=== PATIENT | female | born 1935 | race Caucasian/White ===

== ENCOUNTER 2018-09-09 12:02 | Outpatient (CLI) | payer MEDICARE, OTHER ==
[2018-09-09 13:54] LABS: Bilirubin Negative (Negative); Blood, Urine Negative (Negative); Clarity CLEAR (Clear); Glucose, Urine (Dipstick) Negative (Negative); Leukocyte Moderate (Negative); Nitrite Negative (Negative); Protein, Urine (Dipstick) Negative (Neg-Trace); Specific Gravity, Urine 1.013 (1.002-1.036); Urobilinogen 0.2 mg/dL (0.2-1.0)
[2018-09-09 13:55] LABS: Bacteria/HPF None Seen HPF (None Seen); Hyaline Casts/LPF 0-3 HYALINE CAST LPF (0-3 Hyaline); Squamous Epithelial 0-3 HPF (0-3)
[2018-09-09 14:08] LABS: RBC/HPF None Seen HPF (0-3)
--- NOTE | 2018-09-09 16:45 | RAD ---
FRONTAL AND LATERAL IMAGING OF THE CHEST 09/09/18. COMPARISON: None available. HISTORY: Preoperative patient. FINDINGS: Incompletely imaged degenerative change of bilateral shoulders noted. Postsurgical anchors overlie th e left humeral head. There is no pneumothorax, pleural fluid, lobar consolidation or alveolar edema. There is atherosclerotic calcifications in the aortic arch. There is prominence of the cardiac silhouette. IMPRESSION: No acute findings. POS: NEO
== END 2018-09-09 12:03 | disposition home or self-care (01) ==
LOC: LABBT 12:02
PROVIDERS: ATTEND Orthopaedic Surgery
DX: Z01.818 Encounter for other preprocedural examination (principal); M17.12 Unilateral primary osteoarthritis, left knee
CPT/HCPCS: 71046; 81001; 87081; 93005; 93010

== ENCOUNTER 2018-09-09 12:30 | Inpatient (IN) | payer MEDICARE, OTHER ==
[2018-09-09 12:26] VITALS: BMI 32.4
[2018-09-21] MEDS ORDERED: Sodium Chloride 0.9% 100 ML ONE (06:14)
[2018-09-21] MEDS ORDERED: CEFAZOLIN 2 GM/50 ML BAG ONE (06:14)
[2018-09-21] MEDS ORDERED: Vancomycin HCl 1.5 GM in Sodium Chloride 0.9% 250 ML 300 ML IVPB SCH (06:15)
[2018-09-21] MEDS ORDERED: Midazolam HCl 2 mg/2 ml Vial ONE (06:22)
[2018-09-21] MEDS ORDERED: Lidocaine 1% (PF) 30 ML VIAL ONE (06:22)
[2018-09-21] MEDS ORDERED: Fentanyl 100 MCG/2 ML VIAL ONE ×6 (06:22→12:32)
[2018-09-21] MEDS ORDERED: Zolpidem Tartrate 5 MG TAB PO PRN ×2 (06:55→08:32)
[2018-09-21] MEDS ORDERED: Promethazine HCl 25 MG/ML VIAL IM PRN ×3 (06:55→08:32)
[2018-09-21] MEDS ORDERED: traMADol HCl 50 MG TAB PO PRN ×3 (06:55→08:32)
[2018-09-21] MEDS ORDERED: diphenhydrAMINE 25 MG CAP PO PRN (06:55)
[2018-09-21] MEDS ORDERED: Fentanyl 100 MCG/2 ML VIAL SLOW IVP PRN (06:55)
[2018-09-21] MEDS ORDERED: Ondansetron PF 4 MG/2 ML Vial IVP PRN ×2 (06:55→08:32)
[2018-09-21] MEDS ORDERED: Acetaminophen 325 MG TAB PO PRN (06:55)
[2018-09-21] MEDS ORDERED: HYDROcodone/Acetaminophen 10/325 mg Tablet PO PRN ×2 (06:55)
[2018-09-21] MEDS ORDERED: Non-Formulary Item 1 EACH (Levalbuterol Tartrate [Xopenex Hfa Inhaler] 2 PUFF) INH PRN (06:56)
[2018-09-21] MEDS ORDERED: PROVENTIL INHALER 6.7 G (200 INHALATIONS) INH PRN (07:25)
[2018-09-21] MEDS ORDERED: Promethazine HCl 25 MG/ML VIAL SLOW IVP PRN (07:56)
[2018-09-21] MEDS ORDERED: Ondansetron HCl/PF 4 MG/2 ML Vial IVP PRN (07:56)
[2018-09-21] MEDS ORDERED: Ropivacaine HCl/PF 250 ML in Premix Bag 1 BAG NERVE BLCK SCH (08:32)
[2018-09-21] MEDS ORDERED: HYDROcodone/Acetaminophen 7.5/325 mg Tablet PO PRN ×2 (08:33→08:34)
[2018-09-21] MEDS ORDERED: Non-Formulary Item 1 EACH (Budesonide-Formoterol [Symbicort 160-4.5] 1 PUFF) INH SCH (09:00)
[2018-09-21] MEDS ORDERED: Aspirin 81 mg Enteric Coated Tablet PO SCH (09:00)
--- NOTE | 2018-09-21 09:03 | OP ---
DATE OF PROCEDURE: 09/21/2018 PREOPERATIVE DIAGNOSIS: Degenerative joint disease, left knee. POSTOPERATIVE DIAGNOSES: Degenerative joint disease, left knee. TITLE OF PROCEDURE: Left total knee arthroplasty. SURGEON: Tyler Mariee M.D. BLOCK OUT MACHINE OPERATOR: Bentley Souza PA-C. BLOOD LOSS: Minimal. SPECIMEN: None. DRAINS: None. COMPLICATIONS: None. TOURNIQUET TIME: 48 minutes. IMPLANTS USED: [place] 3 Triathlon femur, #4 tibial baseplate with a 9 mm CS X3 poly spacer and 29 m m patella. PROCEDURE IN DETAIL: After informed consent was obtained in the preoperative holding area. The francine ent was taken to the operative suite where general anesthesia was induced. Once adequate level of ge neral anesthesia was obtained, the patient was positioned and a well-padded tourniquet was placed tracie und the left proximal thigh. The left lower extremity was then prepped and draped in the usual steri le fashion. Prior to exsanguination, a time out was called and all members of the surgical team agre ed upon site, surgeon, and patient. The extremity was then exsanguinated and the tourniquet was rais ed. A midline longitudinal incision was then made directly over the patella extending two fingerbrea dths above the superior pole of the patella and two fingerbreadths inferior to the inferior patellar pole of the patella. Deeper subcutaneous layers were dissected sharply and local bleeding was contro lled with Bovie electrocautery. A quad tendon longitudinal split was then made sharply and a median parapatellar arthrotomy was carried out both sharp and with Bovie electrocautery, carried down to one fingerbreadth medial to the tibial tubercle. The knee was then placed into flexion and the patella was everted nicely, and a copious fat pad ectomy was performed allowing for greater exposure of the t ibia. The computer-assisted distal femoral fiducial was then placed and pinned firmly, and the dista l femoral cutting guide was pinned firmly into place. The oscillating saw was then used to remove th e appropriate amount of bone. The 4-in-1 cutting block was then placed on the distal femur and the o scillating saw was used to remove the appropriate amount of bone off of the anterior, posterior, and chamfer cuts. After completion of bone cuts, the anterior cruciate ligament was resected sharply and the posterior cruciate ligament retractor was placed and the tibia was subluxed for better exposure. Partial meniscectomies were carried out, and the tibial computer-assisted fiducial was pinned, and the cutting guide was placed. Oscillating saw was then used to remove the bone with Hohmann retracto rs used to take care and protect the collateral ligaments. After the tibial resection was performed, a laminar is support analyst was placed in between the freshened bone cuts. The knee placed at 90 degrees and further bilateral meniscectomies were carried out, and the curved osteotome and curettage was used t o remove any excess bone spurs in the posterior compartment. The trial femoral component, tibial bas eplate were placed with the appropriate polyethylene trial insert with an appropriate polyethylene sp acer and patellar button. The knee was taken through full range of motion with flexion and extension from 0-90 degrees and patellar broach squarely in the trochlea without any squinting or subluxation noted. The knee was also stable to varus and valgus stressing at 0, 15, 45, and 90 degrees of flexio n. The drawer was negative. All trial components were then removed and the keel punch was used to pr ovide the appropriate defect in the tibia with a mallet. The freshened bone cuts were copiously irri gated with pulsatile lavage of about 1-1/2 liters to remove all excess debris. The freshened bone cu ts were then dried and with suction and lap sponge. The knee was placed in flexion and retractors we re placed to provide access to all bone cuts. Tobramycin impregnated methyl methacrylate cement was then placed on the freshened bone cuts and implants which were malleted firmly into place. Curettage and Avery elevators were used to remove any excess bone cement. The knee was placed into full exten iker and the patellar button was placed under compression, and the cement was allowed to cure. Once completed, the components were again taken through full range of motion and copious irrigation of the knee was carried out with another liter of normal saline. All components were inspected fully with full range of motion and varus and valgus stressing. There was no laxity noted and full extension was observed clinically. Primary closure was accomplished with #2 interrupted Vicryl stitch of the arth rotomy defect. This was oversewn with a #2 running Quill barbed stitch. The gravitational platelet system was then injected into the arthrotomy prior to closure. The subcutaneous layer was then close d with a running 0 barbed Monocryl stitch and skin closure accomplished with a running subcuticular 3 -0 Monocryl barbed Quill stitch and augmented with cement on the skin. Tourniquet was lowered. Good spontaneous return of distal pulses was noted clinically and a sterile dressing was applied to the i ncision. The procedure was terminated without any complications. The patient was awakened in the op erative suite and the tourniquet was removed, and the patient was taken to the recovery room in stabl e condition.
--- NOTE | 2018-09-21 09:57 | RAD ---
2 VIEWS LEFT KNEE: Date: 09/21/18 COMPARISON: None. HISTORY: Status post left knee arthroplasty. FINDINGS: Two views of the left knee show the patient to be status post left knee arthroplasty without perihard scherer lucency or fracture. Air in the soft tissues is likely from recent surgery. IMPRESSION: Status post left knee arthroplasty without evidence of complication. POS: TPC
[2018-09-21] MEDS ORDERED: traMADol HCl 50 MG TAB ONE (12:28)
--- NOTE | 2018-09-21 13:24 | PDOC.PN ---
- Subjective Encounter Start Date: 09/21/18 Encounter Start Time: 12:15 -: old records requested/rev Patient seen and examined. No new complaints. No overnight events pt seen in PACU, she had left knee replaced, has nerve block and she has no pain , she is doing well - Objective MAR Reviewed: Yes Vital Signs & Weight: Weight Weight 183 lb I&O: preoperative labs and investigation reviewed, Radiology Reviewed by me: Yes (knee xray reviewed) EKG Reviewed by me: Yes (nsr on tele monitor) Phys Exam - Physical Examination Constitutional: NAD HEENT: PERRLA, moist MMs, sclera anicteric Neck: no JVD, supple Respiratory: no wheezing, no rales, no rhonchi Cardiovascular: RRR, no significant murmur, no rub Gastrointestinal: soft, non-tender, no distention, positive bowel sounds Musculoskeletal: no edema, pulses present left knee with dressing, nerve block+, mondragon+ Neurological: non-focal, normal sensation, moves all 4 limbs left leg is numb due to nerve block Psychiatric: normal affect, A&O x 3 Skin: no rash, normal turgor Dx/Plan (1) Status post total left knee replacement Code(s): Z96.652 - PRESENCE OF LEFT ARTIFICIAL KNEE JOINT Status: Acute (2) Asthma Code(s): J45.909 - UNSPECIFIED ASTHMA, UNCOMPLICATED Status: Chronic Qualifiers: Asthma severity: mild Asthma persistence: intermittent Comment: controlled (3) Dyslipidemia Code(s): E78.5 - HYPERLIPIDEMIA, UNSPECIFIED Status: Chronic Comment: on crestor (4) Hypertension Code(s): I10 - ESSENTIAL (PRIMARY) HYPERTENSION Status: Chronic Comment: controlled (5) Macrocytosis Code(s): D75.89 - OTHER SPECIFIED DISEASES OF BLOOD AND BLOOD-FORMING ORGANS Status: Chronic Comment: without anemia (6) Obesity (BMI 30.0-34.9) Code(s): E66.9 - OBESITY, UNSPECIFIED Status: Chronic (7) Osteoarthritis Code(s): M19.90 - UNSPECIFIED OSTEOARTHRITIS, UNSPECIFIED SITE Status: Chronic - Plan cont current plan of care, PT/OT * continue aspirin for DVT prophylaxis * continue pepcid for GI prophylaxis * home medication reconciled * continue PT/OT as per [facility] protocol treatment * nerve block as per anesthesia * pain control with pain meds as below * medication reviewed as below * symptomatic treatment * code status- Full code. * send UA as she had abnormal UA before surgery and send culture as well Review of Systems - Review of Systems Eyes: negative: Pain, Vision Change, Conjunctivae Inflammation, Eyelid Inflammation, Redness, Other ENT: negative: Ear Pain, Ear Discharge, Nose Pain, Nose Discharge, Nose Congestion, Mouth Pain, Mouth Swelling, Throat Pain, Throat Swelling, Other Respiratory: negative: Cough, Dry, Shortness of Breath, Hemoptysis, SOB with Excertion, Pleuritic Pain, Sputum, Wheezing Cardiovascular: negative: chest pain, palpitations, orthopnea, paroxysmal nocturnal dyspnea, edema, light headedness, other Gastrointestinal: negative: Nausea, Vomiting, Abdominal Pain, Diarrhea, Constipation, Melena, Hematochezia, Other Genitourinary: negative: Dysuria, Frequency, Incontinence, Hematuria, Retention , Other Musculoskeletal: negative: Neck Pain, Shoulder Pain, Arm Pain, Back Pain, Hand Pain, Leg Pain, Foot Pain, Other Skin: negative: Rash, Lesions, Jose, Bruising, Other - Medications/Allergies Allergies/Adverse Reactions: Allergies Allergy/AdvReac Type Severity Reaction Status Date / Time olanzapine [From Zyprexa] Allergy Verified 09/09/18 12:30 Medications: Current Medications Acetaminophen (Tylenol) 650 mg PO Q4H PRN PRN Reason: MONTE/ T > 101F; Mild Pain (1-3) Hydrocodone Bitart/Acetaminophen ([place] 7.5/325) 1 tab PO Q4H PRN PRN Reason: Mild Pain (1-3) Hydrocodone Bitart/Acetaminophen ([place] 7.5/325) 1 tab PO Q4H PRN PRN Reason: For Moderate Pain 4-6 Albuterol Sulfate (Proventil Hfa) 2 puff INH [id number] PRN PRN Reason: SOB &/or Wheezing Amlodipine/Benazepril HCl (Lotrel 5/10) 2 cap PO DAILY [facility] Aspirin (Ecotrin) 81 mg PO BID [facility] Benazepril HCl (Lotensin) 40 mg PO DAILY [facility] Cefazolin Sodium/Dextrose (Ancef 2 Gm/50 Ml) 2 gm IVPB Q8HR [facility] Stop: 09/21/18 22:01 Diphenhydramine HCl (Benadryl) 25 mg PO Q6H PRN PRN Reason: Itching Fentanyl (Sublimaze) 50 mcg IV Q1H PRN PRN Reason: BT PAIN Ferrous Gluconate (Fergon) 324 mg PO BID [facility] Furosemide (Lasix) 40 mg PO DAILY [facility] Hydralazine HCl (Apresoline) 50 mg PO DAILY [facility] Sodium Chloride (Normal Saline 0.9%) 1,000 mls @ 100 mls/hr IV .Q10H [facility] Ropivacaine 250 ml/ Device 250 mls @ 0 mls/hr NERVE BLCK INF [facility] Iron/Minerals/Multivitamins (Theragran M) 1 tab PO DAILY [facility] Isosorbide Mononitrate (Imdur Er) 30 mg PO DAILY [facility] Mometasone Furoate/Formoterol Fumar (Dulera 200 Mcg/5 Mcg Inhaler) 1 puff INH BID-RT [facility] Montelukast Sodium (Singulair) 10 mg PO DAILY [facility] Ondansetron HCl (Zofran) 4 mg IVP Q6H PRN PRN Reason: Nausea/Vomiting Promethazine HCl (Phenergan) 12.5 mg IM Q4H PRN PRN Reason: Nausea Rosuvastatin Calcium (Crestor) 40 mg PO DAILY [facility] Senna/Docusate Sodium (Senokot S) 2 tab PO BID [facility] Sodium Chloride (Flush - Normal Saline) 10 ml IVF PRN PRN PRN Reason: Saline Flush Tramadol HCl (Ultram) 50 mg PO Q6H PRN PRN Reason: Mild Pain (1-3) Tramadol HCl (Ultram) 100 mg PO Q6H PRN PRN Reason: Moderate Pain 4-6 Zolpidem Tartrate (Ambien) 5 mg PO HSPRN PRN PRN Reason: Insomnia
[2018-09-21] MEDS ORDERED: Artificial Tears 18 DROP/0.9 ML EA EYE PRN (13:28)
[2018-09-21] MEDS ORDERED: hydrALAZINE 20 MG/ML VIAL SLOW IVP PRN (13:28)
[2018-09-21] MEDS ORDERED: Sodium Chloride 0.65% Nasal 44 ML BOT EA NARE PRN (13:28)
[2018-09-21] MEDS ORDERED: Diabetic Tussin 200 MG/10 ML UDCUP PO PRN (13:28)
[2018-09-21] MEDS ORDERED: Eucerin (Mineral Oil/Petrolatum,White) 30 gm Jar TOP PRN (13:28)
[2018-09-21] MEDS ORDERED: Calcium Carbonate 500 MG ChewTAB PO PRN (13:28)
[2018-09-21] MEDS ORDERED: Loperamide HCl 2 MG CAP PO PRN (13:28)
[2018-09-21] MEDS ORDERED: Cepastat Lozenges 1 LOZ PO PRN (13:28)
[2018-09-21] MEDS ORDERED: Ropivacaine 0.5% HCl/PF (150 MG/30 ML VIAL) ONE (13:31)
[2018-09-21] MEDS ORDERED: Bupivacaine 0.25% HCL 30 ML VIAL ONE (13:31)
[2018-09-21] MEDS ORDERED: PROPOFOL 200 MG/20 ML VIAL ONE (13:35)
[2018-09-21] MEDS ORDERED: Ondansetron PF 4 MG/2 ML Vial ONE (13:35)
[2018-09-21] MEDS ORDERED: Lidocaine 1% PF 5 ML VIAL ONE (13:35)
[2018-09-21] MEDS: Fentanyl 100 MCG/2 ML VIAL IV PRN ×2 (15:44→20:30)
[2018-09-21] MEDS: CEFAZOLIN 2 GM/50 ML BAG IVPB SCH ×2 (15:45→21:03)
[2018-09-21] MEDS: Amlodipine 5 mg/Benazepril 10 mg CAP PO SCH (16:01)
[2018-09-21] MEDS: Aspirin 81 mg Enteric Coated Tablet PO SCH ×2 (16:01→20:37)
[2018-09-21] MEDS: Sodium Chloride 0.9% 1,000 ML IV SCH ×2 (16:01→21:07)
[2018-09-21] MEDS: hydrALAZINE 25 MG TAB PO SCH (16:02)
[2018-09-21] MEDS: Ferrous Gluconate 324 MG TAB PO SCH ×2 (16:02→20:38)
[2018-09-21] MEDS: Furosemide 40 MG TAB PO SCH (16:02)
[2018-09-21] MEDS: Rosuvastatin 20 MG TAB PO SCH (16:03)
[2018-09-21] MEDS: Montelukast Sodium 10 mg Tablet PO SCH (16:03)
[2018-09-21] MEDS: Multivitamin W/ Minerals 1 TAB PO SCH (16:03)
[2018-09-21] MEDS: Senokot S 8.6-50 MG TAB PO SCH ×2 (16:03→20:38)
[2018-09-21] MEDS: Mometasone/Formoterol 120 PUFF INHALER INH SCH (19:38)
[2018-09-21] MEDS: Famotidine 20 MG TAB PO SCH (20:37)
[2018-09-21] MEDS: HYDROcodone/Acetaminophen 7.5/325 mg Tablet PO PRN (21:32)
[2018-09-22] MEDS: HYDROcodone/Acetaminophen 7.5/325 mg Tablet PO PRN ×4 (01:15→21:10)
[2018-09-22] MEDS: Sodium Chloride 0.9% 1,000 ML IV SCH ×3 (03:53→22:37)
[2018-09-22 05:50] LABS: Mean Corpuscular HGB CONC 31.5 g/dL (32.0-36.0); Mean Corpuscular Hemoglobin 32.3 pg (27.0-31.0); Platelet Count 210 thou/uL (130-400); RBC Distribution Width 11.7 % (11.5-14.5)
[2018-09-22] MEDS: Mometasone/Formoterol 120 PUFF INHALER INH SCH ×2 (07:04→18:07)
[2018-09-22] MEDS: Rosuvastatin 20 MG TAB PO SCH (08:21)
[2018-09-22] MEDS: Furosemide 40 MG TAB PO SCH (08:21)
[2018-09-22] MEDS: Ferrous Gluconate 324 MG TAB PO SCH ×2 (08:22→21:10)
[2018-09-22] MEDS: Folic Acid 1 MG TAB PO SCH (08:22)
[2018-09-22] MEDS: hydrALAZINE 25 MG TAB PO SCH (08:22)
[2018-09-22] MEDS: Famotidine 20 MG TAB PO SCH ×2 (08:22→21:09)
[2018-09-22] MEDS: Montelukast Sodium 10 mg Tablet PO SCH (08:22)
[2018-09-22] MEDS: Senokot S 8.6-50 MG TAB PO SCH ×2 (08:23→21:10)
[2018-09-22] MEDS: Aspirin 81 mg Enteric Coated Tablet PO SCH ×2 (08:23→21:09)
[2018-09-22] MEDS: Cyanocobalamin (Vitamin B-12) 1,000 MCG TAB PO SCH (08:23)
[2018-09-22] MEDS: Multivitamin W/ Minerals 1 TAB PO SCH (08:23)
[2018-09-22] MEDS: Amlodipine 5 mg/Benazepril 10 mg CAP PO SCH (08:23)
--- NOTE | 2018-09-22 09:38 | PDOC.PN ---
- Subjective Encounter Start Date: 09/22/18 Encounter Start Time: 07:15 -: old records requested/rev Patient seen and examined. No new complaints. No overnight events - Objective Resuscitation Status: Resuscitation Status FULL:Full Resuscitation MAR Reviewed: Yes Vital Signs & Weight: Vital Signs (12 hours) Temp Pulse Resp BP BP Pulse Ox 09/22/18 08:23 158/78 H 09/22/18 08:22 79 158/78 H 09/22/18 08:00 98.5 F 79 16 155/78 H 95 09/22/18 07:04 82 16 94 L Weight Weight 183 lb I&O: 09/21/18 09/22/18 09/23/18 06:59 06:59 06:59 Intake Total 1040 Output Total 700 Balance 340 Result Diagrams: 09/22/18 05:01 Phys Exam - Physical Examination Constitutional: NAD HEENT: PERRLA, moist MMs, sclera anicteric Neck: no JVD, supple Respiratory: no wheezing, no rales, no rhonchi Cardiovascular: RRR, no significant murmur, no rub Gastrointestinal: soft, non-tender, no distention, positive bowel sounds Musculoskeletal: no edema, pulses present left knee with dressing, nerve block + Neurological: non-focal, normal sensation, moves all 4 limbs Psychiatric: normal affect, A&O x 3 Skin: no rash, normal turgor Dx/Plan (1) Status post total left knee replacement Code(s): Z96.652 - PRESENCE OF LEFT ARTIFICIAL KNEE JOINT Status: Acute (2) Asthma Code(s): J45.909 - UNSPECIFIED ASTHMA, UNCOMPLICATED Status: Chronic Qualifiers: Asthma severity: mild Asthma persistence: intermittent Comment: controlled (3) Dyslipidemia Code(s): E78.5 - HYPERLIPIDEMIA, UNSPECIFIED Status: Chronic Comment: on crestor (4) Hypertension Code(s): I10 - ESSENTIAL (PRIMARY) HYPERTENSION Status: Chronic Comment: controlled (5) Obesity (BMI 30.0-34.9) Code(s): E66.9 - OBESITY, UNSPECIFIED Status: Chronic (6) Osteoarthritis Code(s): M19.90 - UNSPECIFIED OSTEOARTHRITIS, UNSPECIFIED SITE Status: Chronic (7) Macrocytic anemia Code(s): D53.9 - NUTRITIONAL ANEMIA, UNSPECIFIED Status: Chronic - Plan cont current plan of care, plan discussed w/ family, PT/OT, rn social services * continue aspirin for DVT prophylaxis * continue pepcid for GI prophylaxis * home medication reconciled * continue PT/OT as per [facility] protocol treatment * nerve block as per anesthesia * pain control with pain meds as below * medication reviewed as below * symptomatic treatment * start folic acid and vitamin b12 for macrocytic anemia * mondragon out * discussed with family * will need swing bed on discharge. Review of Systems - Review of Systems Eyes: negative: Pain, Vision Change, Conjunctivae Inflammation, Eyelid Inflammation, Redness, Other ENT: negative: Ear Pain, Ear Discharge, Nose Pain, Nose Discharge, Nose Congestion, Mouth Pain, Mouth Swelling, Throat Pain, Throat Swelling, Other Respiratory: negative: Cough, Dry, Shortness of Breath, Hemoptysis, SOB with Excertion, Pleuritic Pain, Sputum, Wheezing Cardiovascular: negative: chest pain, palpitations, orthopnea, paroxysmal nocturnal dyspnea, edema, light headedness, other Gastrointestinal: negative: Nausea, Vomiting, Abdominal Pain, Diarrhea, Constipation, Melena, Hematochezia, Other Genitourinary: negative: Dysuria, Frequency, Incontinence, Hematuria, Retention , Other Musculoskeletal: negative: Neck Pain, Shoulder Pain, Arm Pain, Back Pain, Hand Pain, Leg Pain, Foot Pain, Other Skin: negative: Rash, Lesions, Jose, Bruising, Other - Medications/Allergies Allergies/Adverse Reactions: Allergies Allergy/AdvReac Type Severity Reaction Status Date / Time olanzapine [From Zyprexa] Allergy Verified 09/09/18 12:30 Medications: Current Medications Acetaminophen (Tylenol) 650 mg PO Q4H PRN PRN Reason: MONTE/ T > 101F; Mild Pain (1-3) Hydrocodone Bitart/Acetaminophen ([place] 7.5/325) 1 tab PO Q4H PRN PRN Reason: Mild Pain (1-3) Hydrocodone Bitart/Acetaminophen ([place] 7.5/325) 2 tab PO Q4H PRN PRN Reason: For Moderate Pain 4-6 Last Admin: 09/22/18 07:14 Dose: 2 tab Albuterol Sulfate (Proventil Hfa) 2 puff INH [id number] PRN PRN Reason: SOB &/or Wheezing Albuterol/Ipratropium (Duoneb) 3 ml NEB [id number] PRN PRN Reason: SOB &/or Wheezing Amlodipine/Benazepril HCl (Lotrel 5/10) 2 cap PO DAILY [facility] Last Admin: 09/22/18 08:23 Dose: 2 cap Artificial Tears (Tears Naturale) 2 drop EA EYE PRN PRN PRN Reason: Dry Eyes Aspirin (Ecotrin) 81 mg PO BID [facility] Last Admin: 09/22/18 08:23 Dose: 81 mg Benazepril HCl (Lotensin) 40 mg PO DAILY [facility] Last Admin: 09/22/18 08:23 Dose: 40 mg Calcium Carbonate (Tums) 1,000 mg PO Q4H PRN PRN Reason: Heartburn or Indigestion Cyanocobalamin (Vitamin B-12) 1,000 mcg PO DAILY [facility] Last Admin: 09/22/18 08:23 Dose: 1,000 mcg Diphenhydramine HCl (Benadryl) 25 mg PO Q6H PRN PRN Reason: Itching Famotidine (Pepcid) 20 mg PO BID [facility] Last Admin: 09/22/18 08:22 Dose: 20 mg Fentanyl (Sublimaze) 50 mcg IV Q1H PRN PRN Reason: BT PAIN Last Admin: 09/21/18 20:30 Dose: 50 mcg Ferrous Gluconate (Fergon) 324 mg PO BID [facility] Last Admin: 09/22/18 08:22 Dose: 324 mg Folic Acid (Folvite) 1 mg PO DAILY [facility] Last Admin: 09/22/18 08:22 Dose: 1 mg Furosemide (Lasix) 40 mg PO DAILY [facility] Last Admin: 09/22/18 08:21 Dose: 40 mg Guaifenesin (Robitussin Sf) 200 mg PO Q4H PRN PRN Reason: Cough Hydralazine HCl (Apresoline) 50 mg PO DAILY [facility] Last Admin: 09/22/18 08:22 Dose: 50 mg Hydralazine HCl (Apresoline) 10 mg SLOW IVP Q4H PRN PRN Reason: SBP > 180 and HR < 70 Sodium Chloride (Normal Saline 0.9%) 1,000 mls @ 100 mls/hr IV .Q10H [facility] Last Admin: 09/22/18 03:53 Dose: Not Given Ropivacaine 250 ml/ Device 250 mls @ 0 mls/hr NERVE BLCK INF [facility] Iron/Minerals/Multivitamins (Theragran M) 1 tab PO DAILY [facility] Last Admin: 09/22/18 08:23 Dose: 1 tab Isosorbide Mononitrate (Imdur Er) 30 mg PO DAILY [facility] Last Admin: 09/22/18 08:23 Dose: 30 mg Loperamide HCl (Imodium) 2 mg PO PRN PRN PRN Reason: Diarrhea/Loose Stools Mineral Oil/White Petrolatum (Eucerin Cream) 0 gm TOP BIDPRN PRN PRN Reason: Dry Skin Mometasone Furoate/Formoterol Fumar (Dulera 200 Mcg/5 Mcg Inhaler) 1 puff INH BID-RT [facility] Last Admin: 09/22/18 07:04 Dose: 1 puff Montelukast Sodium (Singulair) 10 mg PO DAILY [facility] Last Admin: 09/22/18 08:22 Dose: 10 mg Ondansetron HCl (Zofran) 4 mg IVP Q6H PRN PRN Reason: Nausea/Vomiting Promethazine HCl (Phenergan) 12.5 mg IM Q4H PRN PRN Reason: Nausea Rosuvastatin Calcium (Crestor) 40 mg PO DAILY [facility] Last Admin: 09/22/18 08:21 Dose: 40 mg Senna/Docusate Sodium (Senokot S) 2 tab PO BID [facility] Last Admin: 09/22/18 08:23 Dose: 2 tab Sodium Chloride (Flush - Normal Saline) 10 ml IVF PRN PRN PRN Reason: Saline Flush Sodium Chloride ([place] Nasal [place] 0.65%) 0 ml EA NARE QIDPRN PRN PRN Reason: Nasal Congestion Throat Lozenges (Cepastat Lozenges) 1 maciel PO Q2H PRN PRN Reason: Sore Throat Tramadol HCl (Ultram) 50 mg PO Q6H PRN PRN Reason: Mild Pain (1-3) Tramadol HCl (Ultram) 100 mg PO Q6H PRN PRN Reason: Moderate Pain 4-6 Last Admin: 09/22/18 04:27 Dose: 100 mg Zolpidem Tartrate (Ambien) 5 mg PO HSPRN PRN PRN Reason: Insomnia
[2018-09-23 05:49] LABS: Mean Corpuscular HGB CONC 32.4 g/dL (32.0-36.0); Mean Corpuscular Hemoglobin 33.1 pg (27.0-31.0); Mean Platelet Volume 8.5 fL (7.4-10.4); Platelet Count 197 thou/uL (130-400); RBC Distribution Width 11.8 % (11.5-14.5); Red Blood Cell (RBC) Count 3.03 mill/uL (4.20-5.40); White Blood Cell (WBC) Count 10.9 thou/uL (4.8-10.8)
[2018-09-23] MEDS: Mometasone/Formoterol 120 PUFF INHALER INH SCH ×2 (06:53→19:21)
--- NOTE | 2018-09-23 09:51 | PDOC.PN ---
- Subjective Encounter Start Date: 09/23/18 Encounter Start Time: 07:25 Patient seen and examined. No new complaints. No overnight events - Objective Resuscitation Status: Resuscitation Status FULL:Full Resuscitation MAR Reviewed: Yes Vital Signs & Weight: Vital Signs (12 hours) Temp Pulse Resp BP BP Pulse Ox 09/23/18 07:30 98.3 F 80 24 H 127/73 94 L 09/23/18 06:53 82 16 92 L 09/23/18 03:58 100.1 F H 84 19 131/69 91 L 09/23/18 00:59 99.1 F 85 20 112/67 93 L Weight Admit Weight 183 lb Weight 183 lb I&O: 09/22/18 09/23/18 09/24/18 06:59 06:59 06:59 Intake Total 1040 Output Total 700 Balance 340 Result Diagrams: 09/23/18 04:48 Phys Exam - Physical Examination Constitutional: NAD HEENT: PERRLA, moist MMs, sclera anicteric Neck: no JVD, supple Respiratory: no wheezing, no rales, no rhonchi Cardiovascular: RRR, no significant murmur, no rub Gastrointestinal: soft, non-tender, no distention, positive bowel sounds Musculoskeletal: no edema, pulses present left knee with dressing, epidural in place Neurological: non-focal, normal sensation, moves all 4 limbs Psychiatric: normal affect, A&O x 3 Skin: no rash, normal turgor Dx/Plan (1) Status post total left knee replacement Code(s): Z96.652 - PRESENCE OF LEFT ARTIFICIAL KNEE JOINT Status: Acute (2) Asthma Code(s): J45.909 - UNSPECIFIED ASTHMA, UNCOMPLICATED Status: Chronic Qualifiers: Asthma severity: mild Asthma persistence: intermittent Comment: controlled (3) Dyslipidemia Code(s): E78.5 - HYPERLIPIDEMIA, UNSPECIFIED Status: Chronic Comment: on crestor (4) Hypertension Code(s): I10 - ESSENTIAL (PRIMARY) HYPERTENSION Status: Chronic Comment: controlled (5) Obesity (BMI 30.0-34.9) Code(s): E66.9 - OBESITY, UNSPECIFIED Status: Chronic (6) Osteoarthritis Code(s): M19.90 - UNSPECIFIED OSTEOARTHRITIS, UNSPECIFIED SITE Status: Chronic (7) Macrocytic anemia Code(s): D53.9 - NUTRITIONAL ANEMIA, UNSPECIFIED Status: Chronic - Plan cont current plan of care, plan discussed w/ family, PT/OT * medication reviewed as below * symptomatic treatment * pain controlled * medically stable * plan for discharge tomorrow to swing bed * discussed with family. Review of Systems - Review of Systems ENT: negative: Ear Pain, Ear Discharge, Nose Pain, Nose Discharge, Nose Congestion, Mouth Pain, Mouth Swelling, Throat Pain, Throat Swelling, Other Respiratory: negative: Cough, Dry, Shortness of Breath, Hemoptysis, SOB with Excertion, Pleuritic Pain, Sputum, Wheezing Cardiovascular: negative: chest pain, palpitations, orthopnea, paroxysmal nocturnal dyspnea, edema, light headedness, other Gastrointestinal: negative: Nausea, Vomiting, Abdominal Pain, Diarrhea, Constipation, Melena, Hematochezia, Other Genitourinary: negative: Dysuria, Frequency, Incontinence, Hematuria, Retention , Other Musculoskeletal: negative: Neck Pain, Shoulder Pain, Arm Pain, Back Pain, Hand Pain, Leg Pain, Foot Pain, Other Skin: negative: Rash, Lesions, Jose, Bruising, Other - Medications/Allergies Allergies/Adverse Reactions: Allergies Allergy/AdvReac Type Severity Reaction Status Date / Time olanzapine [From Zyprexa] Allergy Verified 09/09/18 12:30 Medications: Current Medications Acetaminophen (Tylenol) 650 mg PO Q4H PRN PRN Reason: MONTE/ T > 101F; Mild Pain (1-3) Hydrocodone Bitart/Acetaminophen ([place] 7.5/325) 1 tab PO Q4H PRN PRN Reason: Mild Pain (1-3) Hydrocodone Bitart/Acetaminophen ([place] 7.5/325) 2 tab PO Q4H PRN PRN Reason: For Moderate Pain 4-6 Last Admin: 09/22/18 21:10 Dose: 2 tab Albuterol Sulfate (Proventil Hfa) 2 puff INH [id number] PRN PRN Reason: SOB &/or Wheezing Albuterol/Ipratropium (Duoneb) 3 ml NEB [id number] PRN PRN Reason: SOB &/or Wheezing Amlodipine/Benazepril HCl (Lotrel 5/10) 2 cap PO DAILY [facility] Last Admin: 09/22/18 08:23 Dose: 2 cap Artificial Tears (Tears Naturale) 2 drop EA EYE PRN PRN PRN Reason: Dry Eyes Aspirin (Ecotrin) 81 mg PO BID [facility] Last Admin: 09/22/18 21:09 Dose: 81 mg Benazepril HCl (Lotensin) 40 mg PO DAILY [facility] Last Admin: 09/22/18 08:23 Dose: 40 mg Calcium Carbonate (Tums) 1,000 mg PO Q4H PRN PRN Reason: Heartburn or Indigestion Cyanocobalamin (Vitamin B-12) 1,000 mcg PO DAILY [facility] Last Admin: 09/22/18 08:23 Dose: 1,000 mcg Diphenhydramine HCl (Benadryl) 25 mg PO Q6H PRN PRN Reason: Itching Famotidine (Pepcid) 20 mg PO BID [facility] Last Admin: 09/22/18 21:09 Dose: 20 mg Fentanyl (Sublimaze) 50 mcg IV Q1H PRN PRN Reason: BT PAIN Last Admin: 09/21/18 20:30 Dose: 50 mcg Ferrous Gluconate (Fergon) 324 mg PO BID [facility] Last Admin: 09/22/18 21:10 Dose: 324 mg Folic Acid (Folvite) 1 mg PO DAILY [facility] Last Admin: 09/22/18 08:22 Dose: 1 mg Furosemide (Lasix) 40 mg PO DAILY [facility] Last Admin: 09/22/18 08:21 Dose: 40 mg Guaifenesin (Robitussin Sf) 200 mg PO Q4H PRN PRN Reason: Cough Hydralazine HCl (Apresoline) 50 mg PO DAILY [facility] Last Admin: 09/22/18 08:22 Dose: 50 mg Hydralazine HCl (Apresoline) 10 mg SLOW IVP Q4H PRN PRN Reason: SBP > 180 and HR < 70 Sodium Chloride (Normal Saline 0.9%) 1,000 mls @ 100 mls/hr IV .Q10H [facility] Last Admin: 09/22/18 22:37 Dose: Not Given Ropivacaine 250 ml/ Device 250 mls @ 0 mls/hr NERVE BLCK INF [facility] Last Admin: 09/22/18 10:25 Dose: 250 mls Iron/Minerals/Multivitamins (Theragran M) 1 tab PO DAILY [facility] Last Admin: 09/22/18 08:23 Dose: 1 tab Isosorbide Mononitrate (Imdur Er) 30 mg PO DAILY [facility] Last Admin: 09/22/18 08:23 Dose: 30 mg Loperamide HCl (Imodium) 2 mg PO PRN PRN PRN Reason: Diarrhea/Loose Stools Mineral Oil/White Petrolatum (Eucerin Cream) 0 gm TOP BIDPRN PRN PRN Reason: Dry Skin Mometasone Furoate/Formoterol Fumar (Dulera 200 Mcg/5 Mcg Inhaler) 1 puff INH BID-RT [facility] Last Admin: 09/23/18 06:53 Dose: 1 puff Montelukast Sodium (Singulair) 10 mg PO DAILY [facility] Last Admin: 09/22/18 08:22 Dose: 10 mg Ondansetron HCl (Zofran) 4 mg IVP Q6H PRN PRN Reason: Nausea/Vomiting Promethazine HCl (Phenergan) 12.5 mg IM Q4H PRN PRN Reason: Nausea Rosuvastatin Calcium (Crestor) 40 mg PO DAILY [facility] Last Admin: 09/22/18 08:21 Dose: 40 mg Senna/Docusate Sodium (Senokot S) 2 tab PO BID [facility] Last Admin: 09/22/18 21:10 Dose: 2 tab Sodium Chloride (Flush - Normal Saline) 10 ml IVF PRN PRN PRN Reason: Saline Flush Sodium Chloride ([place] 0.65%) 0 ml EA NARE QIDPRN PRN PRN Reason: Nasal Congestion Throat Lozenges (Cepastat Lozenges) 1 maciel PO Q2H PRN PRN Reason: Sore Throat Tramadol HCl (Ultram) 50 mg PO Q6H PRN PRN Reason: Mild Pain (1-3) Tramadol HCl (Ultram) 100 mg PO Q6H PRN PRN Reason: Moderate Pain 4-6 Last Admin: 09/22/18 04:27 Dose: 100 mg Zolpidem Tartrate (Ambien) 5 mg PO HSPRN PRN PRN Reason: Insomnia
[2018-09-23] MEDS: HYDROcodone/Acetaminophen 7.5/325 mg Tablet PO PRN ×2 (09:54→15:50)
[2018-09-23] MEDS: Aspirin 81 mg Enteric Coated Tablet PO SCH ×2 (09:56→20:59)
[2018-09-23] MEDS: Ferrous Gluconate 324 MG TAB PO SCH ×2 (09:57→20:59)
[2018-09-23] MEDS: Amlodipine 5 mg/Benazepril 10 mg CAP PO SCH (09:57)
[2018-09-23] MEDS: Cyanocobalamin (Vitamin B-12) 1,000 MCG TAB PO SCH (09:57)
[2018-09-23] MEDS: Rosuvastatin 20 MG TAB PO SCH (09:58)
[2018-09-23] MEDS: Montelukast Sodium 10 mg Tablet PO SCH (09:58)
[2018-09-23] MEDS: Famotidine 20 MG TAB PO SCH ×2 (09:59→20:58)
[2018-09-23] MEDS: Senokot S 8.6-50 MG TAB PO SCH ×2 (09:59→20:59)
[2018-09-23] MEDS: Folic Acid 1 MG TAB PO SCH (10:00)
[2018-09-23] MEDS: hydrALAZINE 25 MG TAB PO SCH (10:00)
[2018-09-23] MEDS: Multivitamin W/ Minerals 1 TAB PO SCH (10:00)
[2018-09-23] MEDS: Furosemide 40 MG TAB PO SCH (10:01)
[2018-09-23] MEDS: Sodium Chloride 0.9% 1,000 ML IV SCH ×2 (10:06→20:40)
[2018-09-24] MEDS: Sodium Chloride 0.9% 1,000 ML IV SCH ×2 (06:06→07:29)
[2018-09-24] MEDS: Mometasone/Formoterol 120 PUFF INHALER INH SCH (07:26)
--- NOTE | 2018-09-24 08:36 | PDOC.PN ---
- Subjective Encounter Start Date: 09/24/18 Encounter Start Time: 07:20 Patient seen and examined. No new complaints. No overnight events - Objective Resuscitation Status: Resuscitation Status FULL:Full Resuscitation MAR Reviewed: Yes Vital Signs & Weight: Vital Signs (12 hours) Temp Pulse Resp BP Pulse Ox 09/24/18 07:52 94 L 09/24/18 07:51 99.2 F 84 16 144/70 H 94 L 09/24/18 07:26 97 20 93 L 09/24/18 04:15 98.1 F 78 16 108/65 95 09/24/18 01:09 98.7 F 77 18 97/60 94 L Weight Admit Weight 183 lb Weight 183 lb Result Diagrams: 09/23/18 04:48 Phys Exam - Physical Examination Constitutional: NAD HEENT: PERRLA, moist MMs, sclera anicteric Neck: no JVD, supple Respiratory: no wheezing, no rales, no rhonchi Cardiovascular: RRR, no significant murmur, no rub Gastrointestinal: soft, non-tender, no distention, positive bowel sounds Musculoskeletal: no edema, pulses present Neurological: non-focal, normal sensation Psychiatric: normal affect, A&O x 3 Skin: no rash, normal turgor Dx/Plan (1) Status post total left knee replacement Code(s): Z96.652 - PRESENCE OF LEFT ARTIFICIAL KNEE JOINT Status: Acute (2) Asthma Code(s): J45.909 - UNSPECIFIED ASTHMA, UNCOMPLICATED Status: Chronic Qualifiers: Asthma severity: mild Asthma persistence: intermittent Comment: controlled (3) Dyslipidemia Code(s): E78.5 - HYPERLIPIDEMIA, UNSPECIFIED Status: Chronic Comment: on crestor (4) Hypertension Code(s): I10 - ESSENTIAL (PRIMARY) HYPERTENSION Status: Chronic Comment: controlled (5) Obesity (BMI 30.0-34.9) Code(s): E66.9 - OBESITY, UNSPECIFIED Status: Chronic (6) Osteoarthritis Code(s): M19.90 - UNSPECIFIED OSTEOARTHRITIS, UNSPECIFIED SITE Status: Chronic (7) Macrocytic anemia Code(s): D53.9 - NUTRITIONAL ANEMIA, UNSPECIFIED Status: Chronic - Plan cont current plan of care * medication reviewed as below * symptomatic treatment * stable for discharge * resume home meds on discharge. Review of Systems - Review of Systems ENT: negative: Ear Pain, Ear Discharge, Nose Pain, Nose Discharge, Nose Congestion, Mouth Pain, Mouth Swelling, Throat Pain, Throat Swelling, Other Respiratory: negative: Cough, Dry, Shortness of Breath, Hemoptysis, SOB with Excertion, Pleuritic Pain, Sputum, Wheezing Cardiovascular: negative: chest pain, palpitations, orthopnea, paroxysmal nocturnal dyspnea, edema, light headedness, other Gastrointestinal: negative: Nausea, Vomiting, Abdominal Pain, Diarrhea, Constipation, Melena, Hematochezia, Other Genitourinary: negative: Dysuria, Frequency, Incontinence, Hematuria, Retention , Other Musculoskeletal: negative: Neck Pain, Shoulder Pain, Arm Pain, Back Pain, Hand Pain, Leg Pain, Foot Pain, Other - Medications/Allergies Allergies/Adverse Reactions: Allergies Allergy/AdvReac Type Severity Reaction Status Date / Time olanzapine [From Zyprexa] Allergy Verified 09/09/18 12:30 Medications: Current Medications Acetaminophen (Tylenol) 650 mg PO Q4H PRN PRN Reason: MONTE/ T > 101F; Mild Pain (1-3) Hydrocodone Bitart/Acetaminophen ([place] 7.5/325) 1 tab PO Q4H PRN PRN Reason: Mild Pain (1-3) Hydrocodone Bitart/Acetaminophen ([place] 7.5/325) 2 tab PO Q4H PRN PRN Reason: For Moderate Pain 4-6 Last Admin: 09/23/18 15:50 Dose: 2 tab Albuterol Sulfate (Proventil Hfa) 2 puff INH [id number] PRN PRN Reason: SOB &/or Wheezing Albuterol/Ipratropium (Duoneb) 3 ml NEB [id number] PRN PRN Reason: SOB &/or Wheezing Amlodipine/Benazepril HCl (Lotrel 5/10) 2 cap PO DAILY [facility] Last Admin: 09/23/18 09:57 Dose: 2 cap Artificial Tears (Tears Naturale) 2 drop EA EYE PRN PRN PRN Reason: Dry Eyes Aspirin (Ecotrin) 81 mg PO BID [facility] Last Admin: 09/23/18 20:59 Dose: 81 mg Benazepril HCl (Lotensin) 40 mg PO DAILY [facility] Last Admin: 09/23/18 09:57 Dose: 40 mg Calcium Carbonate (Tums) 1,000 mg PO Q4H PRN PRN Reason: Heartburn or Indigestion Cyanocobalamin (Vitamin B-12) 1,000 mcg PO DAILY [facility] Last Admin: 09/23/18 09:57 Dose: 1,000 mcg Diphenhydramine HCl (Benadryl) 25 mg PO Q6H PRN PRN Reason: Itching Famotidine (Pepcid) 20 mg PO BID [facility] Last Admin: 09/23/18 20:58 Dose: 20 mg Fentanyl (Sublimaze) 50 mcg IV Q1H PRN PRN Reason: BT PAIN Last Admin: 09/21/18 20:30 Dose: 50 mcg Ferrous Gluconate (Fergon) 324 mg PO BID [facility] Last Admin: 09/23/18 20:59 Dose: 324 mg Folic Acid (Folvite) 1 mg PO DAILY [facility] Last Admin: 09/23/18 10:00 Dose: 1 mg Furosemide (Lasix) 40 mg PO DAILY [facility] Last Admin: 09/23/18 10:01 Dose: Not Given Guaifenesin (Robitussin Sf) 200 mg PO Q4H PRN PRN Reason: Cough Hydralazine HCl (Apresoline) 50 mg PO DAILY [facility] Last Admin: 09/23/18 10:00 Dose: 50 mg Hydralazine HCl (Apresoline) 10 mg SLOW IVP Q4H PRN PRN Reason: SBP > 180 and HR < 70 Sodium Chloride (Normal Saline 0.9%) 1,000 mls @ 100 mls/hr IV .Q10H [facility] Last Admin: 09/24/18 07:29 Dose: Not Given Ropivacaine 250 ml/ Device 250 mls @ 0 mls/hr NERVE BLCK INF [facility] Last Admin: 09/22/18 10:25 Dose: 250 mls Iron/Minerals/Multivitamins (Theragran M) 1 tab PO DAILY [facility] Last Admin: 09/23/18 10:00 Dose: 1 tab Isosorbide Mononitrate (Imdur Er) 30 mg PO DAILY [facility] Last Admin: 09/23/18 09:59 Dose: 30 mg Loperamide HCl (Imodium) 2 mg PO PRN PRN PRN Reason: Diarrhea/Loose Stools Mineral Oil/White Petrolatum (Eucerin Cream) 0 gm TOP BIDPRN PRN PRN Reason: Dry Skin Mometasone Furoate/Formoterol Fumar (Dulera 200 Mcg/5 Mcg Inhaler) 1 puff INH BID-RT [facility] Last Admin: 09/24/18 07:26 Dose: 1 puff Montelukast Sodium (Singulair) 10 mg PO DAILY [facility] Last Admin: 09/23/18 09:58 Dose: 10 mg Ondansetron HCl (Zofran) 4 mg IVP Q6H PRN PRN Reason: Nausea/Vomiting Promethazine HCl (Phenergan) 12.5 mg IM Q4H PRN PRN Reason: Nausea Rosuvastatin Calcium (Crestor) 40 mg PO DAILY [facility] Last Admin: 09/23/18 09:58 Dose: 40 mg Senna/Docusate Sodium (Senokot S) 2 tab PO BID [facility] Last Admin: 09/23/18 20:59 Dose: 2 tab Sodium Chloride (Flush - Normal Saline) 10 ml IVF PRN PRN PRN Reason: Saline Flush Sodium Chloride ([place] Nasal [place] 0.65%) 0 ml EA NARE QIDPRN PRN PRN Reason: Nasal Congestion Throat Lozenges (Cepastat Lozenges) 1 maciel PO Q2H PRN PRN Reason: Sore Throat Tramadol HCl (Ultram) 50 mg PO Q6H PRN PRN Reason: Mild Pain (1-3) Tramadol HCl (Ultram) 100 mg PO Q6H PRN PRN Reason: Moderate Pain 4-6 Last Admin: 09/22/18 04:27 Dose: 100 mg Zolpidem Tartrate (Ambien) 5 mg PO HSPRN PRN PRN Reason: Insomnia
[2018-09-24] MEDS: HYDROcodone/Acetaminophen 7.5/325 mg Tablet PO PRN (08:50)
[2018-09-24] MEDS: Multivitamin W/ Minerals 1 TAB PO SCH (08:50)
[2018-09-24] MEDS: Ferrous Gluconate 324 MG TAB PO SCH (08:50)
[2018-09-24] MEDS: hydrALAZINE 25 MG TAB PO SCH (08:51)
[2018-09-24] MEDS: Montelukast Sodium 10 mg Tablet PO SCH (08:52)
[2018-09-24] MEDS: Amlodipine 5 mg/Benazepril 10 mg CAP PO SCH (08:52)
[2018-09-24] MEDS: Senokot S 8.6-50 MG TAB PO SCH (08:52)
[2018-09-24] MEDS: Folic Acid 1 MG TAB PO SCH (08:53)
[2018-09-24] MEDS: Rosuvastatin 20 MG TAB PO SCH (08:53)
[2018-09-24] MEDS: Famotidine 20 MG TAB PO SCH (08:54)
[2018-09-24] MEDS: Cyanocobalamin (Vitamin B-12) 1,000 MCG TAB PO SCH (08:54)
[2018-09-24] MEDS: Furosemide 40 MG TAB PO SCH (08:54)
[2018-09-24] MEDS: Aspirin 81 mg Enteric Coated Tablet PO SCH (08:54)
--- NOTE | 2018-09-24 10:22 | DIS ---
PRIMARY CARE PHYSICIAN: Dr. Sean Kuo DATE OF ADMISSION: 09/21/2018 DATE OF DISCHARGE: 09/24/2018 DISCHARGE DISPOSITION: [place] swing bed. PRIMARY DISCHARGE DIAGNOSIS: Status post left total knee replacement. SECONDARY DISCHARGE DIAGNOSES: Asthma, dyslipidemia, hypertension, osteoarthritis, macrocytic anemia , obesity with BMI 32. PRIMARY PROCEDURE/OPERATION: Left total knee replacement. RADIOLOGICAL INVESTIGATION: Knee x-ray. SIGNIFICANT LABORATORY DATA: WBC 10.9, hemoglobin 10.0, MCV 102, platelet 197. DISCHARGE MEDICATIONS: [place] 7.5 one or two tablets q.4 hourly p.r.n., aspirin 81 mg p.o. b.i.d., Cr estor 40 mg p.o. daily, Singulair 10 mg daily, Imdur 30 mg daily, hydralazine 50 mg daily, Lasix 40 m g daily, Symbicort 1 puff inhalation b.i.d., benazepril 40 mg daily, amlodipine with benazepril 1 cap radha daily, Xopenex inhaler q.6 hourly p.r.n. CONTRAINDICATIONS: None. CODE STATUS: FULL CODE. INPATIENT CONSULTANTS: Dr. Mariee was primary while in hospital. Sound Team was consulted for medic al management. TEST RESULTS PENDING ON DISCHARGE: None. ALLERGIES: OLANZAPINE. DISCHARGE PLAN: Post hospital, the patient will follow up with Dr. Mariee on 10/18/2018 at 1:00 p.m. The patient will follow up with primary care physician as instructed. HOSPITAL COURSE: An 82-year-old female who was electively admitted by Dr. aMriee for left total knee replacement which was done on 09/21/2018 without any complications. Postoperatively, at [facility], we were consulted for medical management. The patient's medical problems remained stable. We continued all her home medication while in hospital as well as on discharge. She was treated with a spirin for DVT prophylaxis. She was having no block while in hospital. She did very well with PT, O T protocol. The patient was requiring rehabilitation placement and that is why patient is discharged to swing bed . The patient and family member will continue vitamin B12 and folic acid over the counter basis. Re st of medication as per above. The patient is seen and examined at bedside today. Please see my progress note from today for furthe r details.
[2018-09-24 11:07] VITALS: BP 117/65; TEMP 99.1
== END 2018-09-24 11:39 | DRG 470 ==
LOC: SJJU 09-21 05:31 → EDSTATUS 09-21 12:30 → SJJU 09-21 13:31
PROVIDERS: ADMIT Orthopaedic Surgery; ATTEND Orthopaedic Surgery
PROC: 0SRD0J9 Replacement of Left Knee Joint with Synthetic Substitute, Cemented, Open Approach (ICD-10-PCS; principal; 2018-09-21)
DX: M17.12 Unilateral primary osteoarthritis, left knee (principal); J45.909 Unspecified asthma, uncomplicated; E78.5 Hyperlipidemia, unspecified; E66.9 Obesity, unspecified; Z68.32 Body mass index [BMI] 32.0-32.9, adult; D53.9 Nutritional anemia, unspecified; I10 Essential (primary) hypertension
CPT/HCPCS: 36415; 85027; 94664; C1713; C1776; G8978-GP-CK; G8979-GP-CI; J2001; J2250; J2405; J2704; J2795; J3010; J3370; J7050; S0020

== ENCOUNTER 2018-09-16 09:54 | Outpatient (CLI) | payer MEDICARE, OTHER ==
[2018-09-16 10:35] LABS: #Basophils 0.1 thou/uL (0.0-0.2); #Eosinphils 0.4 thou/uL (0.0-0.7); #Lymphocytes 2.1 thou/uL (1.20-3.40); #Monocytes 0.6 thou/uL (0.11-0.59); #Neutrophils 6.3 thou/uL (1.40-6.50); %Eosinophils 4.4 % (0.0-10.0); %Lymphocytes 22.1 % (21.0-51.0); %Monocytes 5.9 % (0.0-10.0); %Neutrophils 66.7 % (42.0-75.0); Hemoglobin 13.1 g/dL (12.0-16.0); Mean Corpuscular HGB CONC 31.9 g/dL (32.0-36.0); Mean Corpuscular Hemoglobin 32.4 pg (27.0-31.0); Mean Platelet Volume 7.7 fL (7.4-10.4); Platelet Count 250 thou/uL (130-400); RBC Distribution Width 11.9 % (11.5-14.5); Red Blood Cell (RBC) Count 4.05 mill/uL (4.20-5.40); White Blood Cell (WBC) Count 9.4 thou/uL (4.8-10.8)
[2018-09-16 10:40] LABS: INR-International Normal Ratio 0.9; Prothrombin Time 12.2 SEC (12.0-14.7)
[2018-09-16 10:54] LABS: Anion Gap 13 mmol/L (10-20); BUN (Urea Nitrogen) 19 mg/dL (9.8-20.1); Calc. Creatinine Clearance 0 mL/min (70-130); Calcium 9.7 mg/dL (7.8-10.44); Carbon Dioxide 28 mmol/L (23-31); Chloride 106 mmol/L (98-107); Estimated GFR-MDRD 71; Glucose 97 mg/dL (83-110); Sodium 142 mmol/L (136-145)
== END 2018-09-16 09:55 | disposition home or self-care (01) ==
LOC: LABBT 09:54
PROVIDERS: ATTEND Orthopaedic Surgery
DX: Z01.818 Encounter for other preprocedural examination (principal); M17.12 Unilateral primary osteoarthritis, left knee
CPT/HCPCS: 80048; 85025; 85610; 86850; 86900; 86901